=== PATIENT | female | born 1985 | race American Indian/Alaskan Native ===

== ENCOUNTER 2018-07-21 12:08 | Outpatient (CLI) | payer OTHER | END 2018-07-21 12:09 | disposition home or self-care (01) | LOC: C.PAT 12:08 | DX: D48.7 Neoplasm of uncertain behavior of other specified sites (principal) ==

== ENCOUNTER 2018-08-12 08:59 | Day surgery (SDC) | payer OTHER | END 2018-08-12 15:00 | disposition home or self-care (01) | LOC: C.SDS 08:59 | DX: D48.7 Neoplasm of uncertain behavior of other specified sites (principal) ==